=== PATIENT | female | born 1950 | race Caucasian/White ===

== ENCOUNTER 2018-09-01 10:56 | Outpatient (CLI) | payer MEDICARE, SELFPAY ==
[2018-09-01 12:31] LABS: ALT 35 U/L (12-78); AST 23 U/L (15-37); Albumin 3.9 g/dL (3.4-5.0); Alkaline Phosphatase 122 U/L (46-116); Anion Gap 13.2 mmol/L (3-11); BUN 18 mg/dL (7-18); Bilirubin, Total 0.5 mg/dL (0.2-1.0); CO2 22.8 mmol/L (21.0-32.0); Calcium 9.1 mg/dL (8.5-10.1); Chloride 104 mmol/L (98-107); Cholesterol 341 mg/dL (50-200); Glucose 112 mg/dL (70-100); HDL Cholesterol 35 mg/dL (40-60); LDL CHOLESTEROL 161 mg/dL (<100); Potassium 4.1 mmol/L (3.5-5.1); Sodium 140 mmol/L (136-145); Total Protein 7.2 g/dL (6.4-8.2); Triglyceride 549 mg/dL (30-150)
== END 2018-09-01 11:16 ==
PROVIDERS: PCP Family Medicine; Visit Provider Family Medicine
DX: E78.5 Hyperlipidemia, unspecified (principal)
CPT/HCPCS: 36415; 80053; 80061; 83721

== ENCOUNTER 2018-09-20 15:55 | Outpatient (CLI) | payer MEDICARE, SELFPAY ==
--- NOTE | 2018-09-20 16:28 | DI.RAD_ITS ---
SYMPTOM/DIAGNOSIS: LT KNEE AND HIP PAIN, M25.562 LEFT HIP AND PELVIS: The bony structures are intact. The left hip is well maintained. LEFT KNEE: There is mild narrowing of the medial tibiofemoral joint compartment. Minimal periarticular hypertrophic spurring is demonstrated. There is no evidence of a fracture or dislocation. IMPRESSION: Mild degenerative changes are identified.
== END 2018-09-20 16:15 ==
PROVIDERS: PCP Family Medicine; Visit Provider Family Medicine
DX: M25.562 Pain in left knee (principal); M25.552 Pain in left hip; M17.12 Unilateral primary osteoarthritis, left knee
CPT/HCPCS: 73502; 73564

== ENCOUNTER 2019-04-14 01:44 | Outpatient (CLI) | payer MEDICARE, SELFPAY ==
[2019-04-14 11:29] LABS: Abs Immature Grans 0.05 k/cumm (0.0-0.09); Absolute Basophil Count 0.03 k/cumm (0.0-0.2); Absolute Eosinophil Count 0.07 k/cumm (0.0-0.7); Absolute Lymphocyte Count 2.02 k/cumm (1.2-3.4); Absolute Neutrophil Count 8.48 k/cumm (1.2-6.7); Basophils % 0.3; Eosinophils % 0.6; HCT 40.1 % (36.0-46.0); HGB 13.7 g/dL (12.0-15.5); Immature Grans % 0.4; Lymphocytes % 17.6; Mean Corp. HGB Concentration 34.2 g/dL (32.0-36.0); Mean Corpuscular Hemoglobin 31.6 pg (27.0-33.0); Mean Corpuscular Volume 92.4 fL (80-95); Neutrophils % 74.1; Platelet Count 254 x1000/uL (130-400); RBC 4.34 m/cumm (4.00-5.20); RBC Distribution Width 13.1 % (11.7-14.6); White Blood Cell Count 11.45 k/cumm (4.4-10.8)
[2019-04-14 12:09] LABS: Cholesterol 337 mg/dL (<200); HDL Cholesterol 33 mg/dL (40-60); Magnesium 2.1 mg/dL (1.8-2.4); Triglyceride 632 mg/dL (<150)
[2019-04-14 12:21] LABS: LDL CHOLESTEROL 114 mg/dL (<100)
[2019-04-14 12:44] LABS: ESR 34 mm/hr (0-30)
[2019-04-16 08:43] LABS: Vitamin D 25 Total 59.4 ng/ml (30-100)
== END 2019-04-14 02:04 ==
PROVIDERS: PCP Family Medicine; Visit Provider Family Medicine
DX: R53.83 Other fatigue (principal); E78.5 Hyperlipidemia, unspecified; M85.88 Other specified disorders of bone density and structure, other site
CPT/HCPCS: 36415; 80061; 82306; 83721; 85652; 83735; 84443; 85025

== ENCOUNTER 2019-10-15 02:06 | Outpatient (CLI) | payer MEDICARE, SELFPAY ==
[2019-10-15 11:34] LABS: HCT 42.7 % (36.0-46.0); HGB 14.4 g/dL (12.0-15.5); Mean Corp. HGB Concentration 33.7 g/dL (32.0-36.0); Mean Corpuscular Hemoglobin 31.2 pg (27.0-33.0); Mean Corpuscular Volume 92.6 fL (80-95); Mean Platelet Volume 9.9 fL (8.0-11.0); Platelet Count 273 x1000/uL (130-400); RBC 4.61 m/cumm (4.00-5.20); RBC Distribution Width 13.3 % (11.7-14.6); White Blood Cell Count 7.88 k/cumm (4.4-10.8)
[2019-10-15 12:17] LABS: ALT 31 U/L (14-59); Albumin 3.9 g/dL (3.4-5.0); Alkaline Phosphatase 121 U/L (46-116); Anion Gap 6.7 mmol/L (3-11); BUN 18 mg/dL (7-18); Bilirubin, Total 0.4 mg/dL (0.2-1.0); CO2 29.3 mmol/L (21.0-32.0); CREATININE 1.03 mg/dL (0.55-1.02); Calcium 8.9 mg/dL (8.5-10.1); Chloride 105 mmol/L (98-107); Cholesterol 405 mg/dL (<200); Estimated GFR 53.13 (mL/min/1.73m2); Glucose 128 mg/dL (74-106); HDL Cholesterol 33 mg/dL (40-60); Potassium 4.3 mmol/L (3.5-5.1); Sodium 141 mmol/L (136-145); TSH (W/Ref FT4) 1.86 uIU/mL (0.36-3.74); Total Protein 7.2 g/dL (6.4-8.2); Triglyceride 824 mg/dL (<150)
[2019-10-15 13:07] LABS: AST 25 U/L (15-37)
[2019-10-15 13:19] LABS: LDL CHOLESTEROL 149 mg/dL (<100)
[2019-10-16 15:12] LABS: Hemoglobin A1C 5.9 % (3.8-5.6)
== END 2019-10-15 02:26 ==
PROVIDERS: PCP Family Medicine; Visit Provider Family Medicine
DX: E78.5 Hyperlipidemia, unspecified (principal); R53.83 Other fatigue; E11.9 Type 2 diabetes mellitus without complications; I10 Essential (primary) hypertension
CPT/HCPCS: 36415; 80053; 80061; 83721; 85027; 83036; 84443

== ENCOUNTER 2019-12-12 22:52 | Outpatient (REF) | payer MEDICARE, SELFPAY ==
[2019-12-14 14:30] LABS: HSV Type 1 Ab, IgG Negative (Negative); HSV Type 2 Ab, IgG Positive (Negative)
== END 2019-12-12 23:12 ==
LOC: LBN 22:52
PROVIDERS: PCP Family Medicine; Visit Provider Physician Assistant
DX: L98.8 Other specified disorders of the skin and subcutaneous tissue (principal); Z11.59 Encounter for screening for other viral diseases
CPT/HCPCS: 86695; 86696

== ENCOUNTER 2020-04-22 02:25 | Outpatient (CLI) | payer MEDICARE, SELFPAY ==
--- OUTSIDE RECORDS SUMMARY | 2020-04-22 02:27 | XMS_ITS | Encounter Summary ---
:1950 Author Care Team Providers Name Role Phone Dr. Kayla Cruz Primary Care Provider [phone] Dr. Kayla Cruz Referring Provider [phone] Reason for Visit pad on left foot, right foot toes are ru bbing together Assessment and Plan Assessment Note Assessment/Plan: 1. Hammertoe Deformity Left 2. Bilateral Planus Foot type -Discussed in detail bio and pathomechan ics of foot type with patient. -Rx: x-rays b/l feet weight bearing. If pt decides she wants orthotics. Pt currently not having significant pain and is undecided about orthotics. -Pared hpk lesion x 3 with sterile #15 b lade. 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 Advised pt to use running sneakers. Advised pt not to walk without support, even in the house. -Advised patient to f/u with PCP as dire cted. -RTC x 3 months 1. Pain in left foot ? XR, foot, 3 or more view 2. Pain in right foot ? XR, foot, 3 or more view 3. Acquired plantar keratoderma ? ammonium lactate 12 % loti on 4. Acquired pes planus of left f oot 5. Acquired pes planus of right foot Discussion Note: None recorded.Patient educational handouts: No information available. Plan of Care Reminders Provider Appointments None ? ? recorded. Lab None ? ? recorded. Referral None ? ? recorded. Procedures None ? ? recorded. Surgeries None ? ? recorded. Imaging XR, Foot, 02/28/2020 [facility] - 3 or More View Radiology ? XR, Foot, 02/28/2020 [facility] - 3 or More View Radiology Medications Name Start Date ? ? ammonium lactate 12 % lotion ? apply to calloused skin on feet after using pumice st one twice daily astaxanthin 4 mg capsule ? Take 1 capsule every day by oral route. calcium carb-vit D3-minerals 600 mg calcium-400 unit t ablet ? Take 1 tablet every day by oral route. FV Vitamin C 1000 mg tablet ? Take 1 tablet every day by oral route. multivitamin ? once daily Vitamin D3 50 mcg (2,000 unit) capsule ? Take 1 capsule every day by oral route. Medications Administered None recorded. Vitals Weight 158 lbs Results Lab Results None recorded. Allergies Code Code System Name Reaction Severity Onset 95133 RxNorm Bupropion ? ? ? Sulfa (Sulfonamide ? ? ? Antibiotics) Tetracyclines ? ? ? Problems Name Status Onset Date Source ? Verruca Vulgaris Active 06/21/2018 ? Hand Wart Active 06/21/2018 ? Neck Pain Active 06/21/2018 ? Foot Pain Active 06/21/2018 ? History of Back Pain Active 06/21/2018 ? Hyperlipidemia Active ? ? Depressive Disorder Active ? ? Fatigue Active ? ? Hyperglycemia Active ? ? Procedures Date Name Performed by ? 02/28/2020 XR, Foot, 3 or More View [facility] - Radiology [address] [place] [id number] (Work Place) 02/28/2020 XR, Foot, 3 or More View [facility] - Radiology [address] [place] [address] (Work Place) Vaccine List None recorded. Social History Tobacco Smoking Status Never Smoker Notes: 06/22/18 Most Recent Tobacco Use 02/28/2020 Screening E-cigarette/Vape Status Never used electronic cigarettes In the 14 days before symptom N onset, did the patient spend time in [facility]? Smokeless Tobacco Status Never used smokeless tobacco If patient spent time in [facility] - Does the patient live in [facility]? Has patient visited an area N known to be high risk for 2019 n-CoV? Functional Status Unknown. Past Encounters 02/28/2020 Pain in Left Foot; Pain in Right Foot; A cquired Plantar Keratoderma; Acquired Pes Planus of Left Foot; Acquired Pes Planus of Right Foot Emily Cardozo DPM: [address] [place] [address], Ph. History of Present Illness Note: 69 y/o female presents with h/o left peroneal tendonitis, needs padding to left foot and has concerns of right toes rubbing together. Pt also has concerns of painful callous to left foot. Pt uses ped egg to shave callous but she states it is painful to walk without shoes. Pt has not sought treament for this until today. No other acute pedal concerns. Review of Systems ? Notes: all neg at this time Physical Exam ? Notes: P/E:
<div>VASC:
</div> <div>DP/PT pulses palpable(2/4) b/l LE. 0/4 pitting edema to b/l LE. Ski n temp
</div><div>warm to warm prox to distal b/l LE. Intact pedal hair gr owth b/l LE.
</div><div>Capillary Fill time immediate bilateral; neg Casandra icosities b/l; neg Rubor
</div><div>b/l
</div> <div>
</div><div>DERM:
</div><div>No open lesions noted b/l.
</div ><div>Left sub met heads 2,3,5 hpk lesion: neg intralesional hemorrhage +PO P</div><div>Nails 1-10 short, groomed, wnl.
</div><div>b/l fat pad a trophy plantar</div><div>
</div><div>MUSC:
</div><div>MMT 5/5 to al l major muscle groups b/l LE with mildly decreased AJ, STJ, and pedal
</ div><div>joint ROM b/l. neg equinus b/l. No POP to b/l Achilles tendon insertio ns, neg POP
</div><div>b/l plantar fascial insertion and medial to late ral compression of b/l os
</div><div>calcis. </div><div>Neg POP along PT, peroneal or Achilles tendons. + digital contracture b/l 2,3,4,5: Lef t > Right</div><div>
</div><d iv>NEURO:
</div><div>Protective threshold intact b/l LE as per 5.07 mo nofilament().
</div>
--- OUTSIDE RECORDS SUMMARY | 2020-04-22 02:27 | XMS_ITS ---
:1950 Author Care Team Providers Name Role Phone DR. ARRON MILTON Primary Care Provider [phone] DR. ARRON MILTON Referring Provider [phone] Allergies Code Code System Name Reaction Severity Status Onset 93062 RxNorm Bupropion ? ? Active ? Sulfa (Sulfonamide ? ? Active ? Antibiotics) Tetracyclines ? ? Active ? Medications Name Status Start Date Stop Date ? ? ammonium lactate 12 % lotion Active ? Not available apply to calloused skin on feet after using pumice stone twice daily astaxanthin 4 mg capsule Active ? Not isiah ilable Take 1 capsule every day by oral route. calcium carb-vit D3-minerals 600 mg calcium-400 unit tablet Acti ve ? Not available Take 1 tablet every day by oral route. FV Vitamin C 1000 mg tablet Active ? Not available Take 1 tablet every day by oral route. multivitamin Active ? Not available once daily Vitamin D3 50 mcg (2,000 unit) capsule Active ? Not available Take 1 capsule every day by oral route. Problems Name Status Onset Date Source ? [...] 02/28/2020 XR, Foot, 3 or More View [facility] Radiology [address] [place], [place] [id number] (Work Place) 02/28/2020 XR, Foot, 3 or More View [facility] [address] [place] [address] (Work Place) Results Lab Results None recorded. Past Encounters 02/28/2020 Pain in Left Foot; Pain in Right Foot; A cquired Plantar Keratoderma; Acquired Pes Planus of Left Foot; Acquired Pes Planus of Right Foot Emily Cardozo DPM: [address] [place] [address], Ph. Social History Tobacco Smoking Status Never Smoker Notes: 06/22/18 Vaccine List None recorded. Plan of Care Reminders Provider Appointments None ? ? recorded. Lab None ? ? recorded. Referral None ? ? recorded. Procedures None ? ? recorded. Surgeries None ? ? recorded. Imaging None ? ? recorded. Vitals 02/28/2020 03:00PM PODIATRY ACUTE Weight 71.67 kg 06/22/2018 03:30PM PODIATRY NEW PATIENT Height Weight BMI Blood Pressure 162.56 cm 71.67 kg 27.1 kg/m2 148/72 mm[Hg]
[2020-04-22 11:11] LABS: Hemoglobin A1C 5.9 % (<5.7)
[2020-04-22 12:00] LABS: HDL Cholesterol 34 mg/dL (40-60); Triglyceride 956 mg/dL (<150)
[2020-04-22 12:01] LABS: Cholesterol 486 mg/dL (<200)
[2020-04-22 12:12] LABS: LDL CHOLESTEROL 145 mg/dL (<100)
== END 2020-04-22 02:45 ==
PROVIDERS: PCP Family Medicine; Visit Provider Family Medicine
DX: E78.5 Hyperlipidemia, unspecified (principal); E11.9 Type 2 diabetes mellitus without complications
CPT/HCPCS: 36415; 80061; 83721; 83036

== ENCOUNTER 2020-06-17 08:17 | Outpatient (CLI) | payer MEDICARE, SELFPAY ==
[2020-06-18 13:26] LABS: COVID-19 RT-PCR UVMMC Result Negative (Negative)
== END 2020-06-17 08:18 | disposition home or self-care (01) ==
LOC: LBO 08:18
PROVIDERS: PCP Family Medicine; Visit Provider Family Medicine
DX: Z20.822 Contact with and (suspected) exposure to COVID-19 (principal)
CPT/HCPCS: U0003; U0005

== ENCOUNTER 2021-01-16 03:51 | Outpatient (CLI) | payer MEDICARE, SELFPAY ==
--- NOTE | 2021-01-16 07:00 | DI.RAD_ITS ---
Exam(s) XR RIBS LT W PA LAT CHEST CLINICAL HISTORY: injury to left rib, ? fx, LT RIB PAIN. COMPARISON: No exams were available for comparison FINDINGS: LUNGS: Clear. No pleural abnormality seen. HEART: Normal. MEDIASTINUM: Normal. BONES: No displaced rib fracture is seen. No bony destructive lesion is seen. Degenerative changes a re seen in the spine and left shoulder. OTHER FINDINGS: None. IMPRESSION: 1. Unremarkable radiographic appearance of the left ribs. 2. No acute pulmonary findings.
== END 2021-01-16 04:11 ==
PROVIDERS: PCP Family Medicine; Visit Provider Physician Assistant
DX: R07.81 Pleurodynia (principal)
CPT/HCPCS: 71046; 71100

== ENCOUNTER 2021-09-07 01:47 | Outpatient (CLI) | payer MEDICARE, SELFPAY | END 2021-09-07 01:48 | disposition home or self-care (01) | LOC: LBO 01:47 | PROVIDERS: PCP Family Medicine; Visit Provider Family Medicine ==

== ENCOUNTER 2021-09-10 01:52 | Outpatient (CLI) | payer MEDICARE, SELFPAY ==
[2021-09-10 13:28] LABS: Anion Gap 10.1 mmol/L (3-11); BUN 18 mg/dL (7-18); CO2 25.9 mmol/L (21.0-32.0); CREATININE 0.9 mg/dL (0.55-1.02); Calcium 8.6 mg/dL (8.5-10.1); Chloride 104 mmol/L (98-107); Cholesterol 440 mg/dL (<200); Glucose 143 mg/dL (74-106); HDL Cholesterol 37 mg/dL (40-60); Sodium 140 mmol/L (136-145)
[2021-09-10 13:29] LABS: Triglyceride 1127 mg/dL (<150)
[2021-09-10 13:44] LABS: LDL CHOLESTEROL 103 mg/dL (<100)
== END 2021-09-10 01:53 | disposition home or self-care (01) ==
LOC: LOS 01:53
PROVIDERS: Family Medicine; PCP Family Medicine; Visit Provider Family Medicine
DX: I10 Essential (primary) hypertension (principal); Z00.00 Encounter for general adult medical examination without abnormal findings
CPT/HCPCS: 36415; 80048; 80061; 83721

== ENCOUNTER 2021-09-22 02:49 | Outpatient (CLI) | payer MEDICARE, SELFPAY ==
[2021-09-22 12:42] LABS: Abs Immature Grans 0.03 10^3/uL (0.0-0.06); Absolute Basophil Count 0.06 10^3/uL (0.0-0.2); Absolute Eosinophil Count 0.12 10^3/uL (0.0-0.7); Absolute Lymphocyte Count 1.72 10^3/uL (1.2-3.4); Absolute Monocyte Count 0.42 10^3/uL (0.1-0.8); Absolute Neutrophil Count 5.19 10^3/uL (1.2-6.7); Basophils % 0.8; Eosinophils % 1.6; HCT 43.6 % (36.0-46.0); Immature Grans % 0.4; Lymphocytes % 22.8; MCH 30.5 pg (27.0-33.0); MCHC 32.1 % (32.0-36.0); MCV 95 fL (80-95); MPV 10.4 fL (8.0-11.0); Monocytes % 5.6; Neutrophils % 68.8; Platelet Count 267 10^3/uL (130-400); RBC 4.59 10^6/uL (3.93-5.22); RDW 12.9 % (11.7-14.6); RDW-SD 45.1 fL; WBC 7.54 10^3/uL (4.4-10.8)
[2021-09-22 12:52] LABS: PTT Activated 26.2 sec (21.0-27.5); Prothrombin Time 9.8 sec (9.3-11.0)
== END 2021-09-22 02:50 | disposition home or self-care (01) ==
LOC: LOS 02:52
PROVIDERS: PCP Family Medicine; Visit Provider Physician Assistant
DX: R23.3 Spontaneous ecchymoses (principal); S03.00XA Dislocation of jaw, unspecified side, initial encounter; K12.0 Recurrent oral aphthae
CPT/HCPCS: 36415; 85025; 85610; 85730

== ENCOUNTER 2021-12-15 01:47 | Outpatient (CLI) | payer MEDICARE, SELFPAY ==
[2021-12-15 12:44] LABS: ALT 24 U/L (14-59); AST 9 U/L (15-37); Albumin 3.7 g/dL (3.4-5.0); Alkaline Phosphatase 104 U/L (46-116); Anion Gap 10.6 mmol/L (3-11); BUN 14 mg/dL (7-18); Bilirubin, Total 0.5 mg/dL (0.2-1.0); CO2 27.4 mmol/L (21.0-32.0); Calcium 9.1 mg/dL (8.5-10.1); Calculated LDL 103 mg/dL (<100); Chloride 103 mmol/L (98-107); Cholesterol 212 mg/dL (<200); Estimated GFR 54.66 (mL/min/1.73m2); Glucose 124 mg/dL (74-106); HDL Cholesterol 45 mg/dL (40-60); Potassium 3.8 mmol/L (3.5-5.1); Sodium 141 mmol/L (136-145); Total Protein 7.6 g/dL (6.4-8.2); Triglyceride 320 mg/dL (<150)
== END 2021-12-15 01:48 | disposition home or self-care (01) ==
LOC: LOS 01:47
PROVIDERS: PCP Family Medicine; Visit Provider Family Medicine
DX: E78.5 Hyperlipidemia, unspecified (principal)
CPT/HCPCS: 36415; 80053; 80061

== ENCOUNTER → 2022-02-12 16:03 | Outpatient (CLI) | payer MEDICARE, SELFPAY ==
--- NOTE | 2022-02-12 11:00 | DI.RAD_ITS ---
Exam(s) XR HIP LT COMPLETE AP PELVIS EXAM: XR HIP LT COMPLETE AP PELVIS CLINICAL HISTORY: PAIN IN LEFT HIP-M25.552. TECHNIQUE: 2D digital imaging was performed of the left hip. Two views were obtained. AP pelvis an d lateral left hip views were obtained. COMPARISON: CR XR hip LT complete AP pelvis from 09/20/2018 FINDINGS: BONES: No acute fracture is present. No bony destructive lesion is seen. JOINTS: No dislocation present. There are mild degenerative changes of the hips bilaterally. SOFT TISSUE: Normal. IMPRESSION: 1. Mild degenerative changes of the hips bilaterally. 2. No acute fracture or dislocation. DATA REPOSITORY: RADIATION DOSE DELIVERED:
== END ==
PROVIDERS: PCP Family Medicine; Visit Provider Physician Assistant
DX: M16.0 Bilateral primary osteoarthritis of hip (principal)
CPT/HCPCS: 73502

== ENCOUNTER 2022-08-13 15:19 | Outpatient (REF) | payer MEDICARE, SELFPAY | END 2022-08-13 15:20 | disposition home or self-care (01) | LOC: LBN 15:19 | PROVIDERS: PCP Family Medicine; Visit Provider Nurse Practitioner Family | DX: N39.0 Urinary tract infection, site not specified (principal) | CPT/HCPCS: 87086 ==

== ENCOUNTER 2022-10-06 04:10 | Outpatient (CLI) | payer MEDICARE, SELFPAY ==
[2022-10-06 14:38] LABS: Vitamin D 25 Total 89.1 ng/mL (30-100)
[2022-10-06 14:40] LABS: ALT 32 U/L (14-59); AST 21 U/L (15-37); Albumin 4.1 g/dL (3.4-5.0); Alkaline Phosphatase 131 U/L (46-116); Anion Gap 7.9 mmol/L (3-11); BUN 15 mg/dL (7-18); Bilirubin, Total 0.6 mg/dL (0.2-1.0); CO2 28.1 mmol/L (21.0-32.0); Calcium 9.1 mg/dL (8.5-10.1); Calculated LDL 137 mg/dL (<100); Chloride 104 mmol/L (98-107); Cholesterol 253 mg/dL (<200); Estimated GFR 59.86 (mL/min/1.73m2); Glucose 117 mg/dL (74-106); HDL Cholesterol 47 mg/dL (40-60); Potassium 3.6 mmol/L (3.5-5.1); Sodium 140 mmol/L (136-145); TSH (W/Ref FT4) 1.94 uIU/mL (0.36-3.74); Total Protein 8.3 g/dL (6.4-8.2); Triglyceride 347 mg/dL (<150); Vitamin B12 430 pg/mL (193-986)
[2022-10-06 15:04] LABS: Bilirubin, Direct 0.1 mg/dL (0.0-0.2)
== END 2022-10-06 04:11 | disposition home or self-care (01) ==
LOC: LBO 04:10
PROVIDERS: PCP Student in an Organized Health Care Education/Training Program; Visit Provider Student in an Organized Health Care Education/Training Program
DX: E11.9 Type 2 diabetes mellitus without complications (principal); I10 Essential (primary) hypertension; M85.88 Other specified disorders of bone density and structure, other site; R10.9 Unspecified abdominal pain; R25.2 Cramp and spasm; R53.83 Other fatigue; Z92.89 Personal history of other medical treatment; E78.5 Hyperlipidemia, unspecified; Z79.899 Other long term (current) drug therapy
CPT/HCPCS: 36415; 80048; 80061; 80076; 82306; 82607; 82746; 84443

== ENCOUNTER → 2022-11-08 14:17 | Outpatient (BNVA) | payer MEDICARE, SELFPAY | PROVIDERS: PCP Student in an Organized Health Care Education/Training Program; Referring Provider Student in an Organized Health Care Education/Training Program; Visit Provider Surgery | DX: K62.5 Hemorrhage of anus and rectum (principal); K64.4 Residual hemorrhoidal skin tags | CPT/HCPCS: 99203; 99242 ==

== ENCOUNTER 2022-11-09 03:31 | Outpatient (CLI) | payer MEDICARE, SELFPAY ==
[2022-11-09 09:41] LABS: Hemoglobin A1C 6.1 % (<5.7)
[2022-11-12 16:18] LABS: Apolipoprotein B, Serum 138 mg/dL (48-124); Beta VLDL Cholesterol 71 mg/dL (<15); Beta VLDL Triglycerides 71 mg/dL (<15); Cholesterol, Total, CDC 346 mg/dL; Chylomicron Cholesterol Not Detected; Chylomicron Triglycerides Not Detected; HDL Cholesterol, CDC 31 mg/dL (>=50); LDL Cholesterol 139 mg/dL; LDL Triglycerides 122 mg/dL (<=50); Lp(a) Cholesterol 9 mg/dL (<5); LpX Not detected; Triglycerides, CDC 607 mg/dL; VLDL Cholesterol 96 mg/dL (<30); VLDL Triglycerides 386 mg/dL (<120)
== END 2022-11-09 03:32 | disposition home or self-care (01) ==
LOC: LBO 03:31
PROVIDERS: Absent Provider Student in an Organized Health Care Education/Training Program; PCP Student in an Organized Health Care Education/Training Program; Visit Provider Student in an Organized Health Care Education/Training Program
DX: E78.5 Hyperlipidemia, unspecified (principal); I10 Essential (primary) hypertension; R73.09 Other abnormal glucose
CPT/HCPCS: 36415; 80061; 86900; 86901; 82172; 82664; 83036

== ENCOUNTER 2023-02-22 02:54 | Outpatient (CLI) | payer MEDICARE, SELFPAY ==
[2023-02-22 13:15] LABS: HGB 14.2 g/dL (11.2-15.7)
[2023-02-22 13:49] LABS: Hemoglobin A1C 5.9 % (<5.7)
[2023-02-22 14:03] LABS: Anion Gap 8.3 mmol/L (3-11); BUN 14 mg/dL (7-18); CO2 27.7 mmol/L (21.0-32.0); CREATININE 0.9 mg/dL (0.55-1.02); Calcium 9.5 mg/dL (8.5-10.1); Calculated LDL 170 mg/dL (<100); Chloride 104 mmol/L (98-107); Cholesterol 283 mg/dL (<200); Estimated GFR 67.92 (mL/min/1.73m2); Glucose 111 mg/dL (74-106); HDL Cholesterol 42 mg/dL (40-60); Potassium 3.9 mmol/L (3.5-5.1); Sodium 140 mmol/L (136-145); Triglyceride 355 mg/dL (<150)
== END 2023-02-22 02:55 | disposition home or self-care (01) ==
LOC: LBO 02:54
PROVIDERS: Absent Provider Student in an Organized Health Care Education/Training Program; PCP Student in an Organized Health Care Education/Training Program; Visit Provider Student in an Organized Health Care Education/Training Program
DX: I10 Essential (primary) hypertension (principal); E11.9 Type 2 diabetes mellitus without complications; E63.9 Nutritional deficiency, unspecified; K62.5 Hemorrhage of anus and rectum; K64.4 Residual hemorrhoidal skin tags; M85.80 Other specified disorders of bone density and structure, unspecified site; Z92.89 Personal history of other medical treatment; Z13.220 Encounter for screening for lipoid disorders
CPT/HCPCS: 36415; 80048; 80061; 83036; 85018

== ENCOUNTER → 2023-07-18 03:59 | Outpatient (CLI) | payer MEDICARE, SELFPAY ==
--- NOTE | 2023-07-18 08:15 | DI.RAD_ITS ---
Exam(s) XR CHEST 2V PA LATERAL EXAM: XR CHEST 2V PA LATERAL CLINICAL HISTORY: eval cardiomegaly,[id number],i10. TECHNIQUE: 2D digital imaging was performed. COMPARISON: CR XR RIBS LT W PA LAT CHEST from 01/16/2021 FINDINGS: 2 views: There is a peripherally calcified right breast implant again noted Heart size is normal. The mediastinum is not widened. Lungs are clear. No infiltrates nor pleural effusions. IMPRESSION: No acute pulmonary findings. DATA REPOSITORY: RADIATION DOSE DELIVERED:
== END ==
PROVIDERS: PCP Student in an Organized Health Care Education/Training Program; Visit Provider Student in an Organized Health Care Education/Training Program
DX: Z92.89 Personal history of other medical treatment (principal); I10 Essential (primary) hypertension
CPT/HCPCS: 71046

== ENCOUNTER 2023-07-18 05:25 | Outpatient (CLI) | payer MEDICARE, SELFPAY ==
[2023-07-18 11:37] LABS: BUN 14 mg/dL (7-18); CREATININE 1.1 mg/dL (0.55-1.02); Calcium 9.1 mg/dL (8.5-10.1); Chloride 103 mmol/L (98-107); Cholesterol 473 mg/dL (<200); Estimated GFR 53.39 (mL/min/1.73m2); Glucose 136 mg/dL (74-106); HDL Cholesterol 46 mg/dL (40-60); Potassium 3.8 mmol/L (3.5-5.1); Sodium 141 mmol/L (136-145); Triglyceride 788 mg/dL (<150)
[2023-07-18 11:48] LABS: LDL CHOLESTEROL 168 mg/dL (<100)
== END 2023-07-18 05:26 | disposition home or self-care (01) ==
LOC: LBO 05:25
PROVIDERS: PCP Student in an Organized Health Care Education/Training Program; Visit Provider Student in an Organized Health Care Education/Training Program
DX: I10 Essential (primary) hypertension (principal); E11.9 Type 2 diabetes mellitus without complications; M85.80 Other specified disorders of bone density and structure, unspecified site; Z92.89 Personal history of other medical treatment
CPT/HCPCS: 36415; 80048; 80061; 83721; 71046